=== PATIENT | male | born 2000 | race Two or more races ===

== ENCOUNTER 2023-08-04 13:36 | Emergency (ER) | payer OTHER ==
[2023-08-04] MEDS ORDERED: NAPROXEN 500 MG TABLET ONE (13:57)
[2023-08-04 13:58] VITALS: BP 129/87; PULSE 87; RESP 18; TEMP 98.2; BMI 47.5
[2023-08-04] MEDS: NAPROXEN 500 MG TABLET PO ONE (13:58)
[2023-08-04] MEDS ORDERED: ACETAMINOPHEN 500 MG TABLET (FP) ONE (15:45)
[2023-08-04] MEDS: ACETAMINOPHEN 500 MG TABLET (FP) PO ONE (15:46)
== END 2023-08-04 16:13 | disposition home or self-care (01) ==
LOC: FER 13:36
DX: M54.50 Low back pain, unspecified (principal); M79.10 Myalgia, unspecified site; W01.0XXA Fall on same level from slipping, tripping and stumbling without subsequent striking against object, initial encounter
CPT/HCPCS: 72131-TC; 72192-TC; 72220-TC-FY; 99284-25